=== PATIENT | female | born 1970 | race Caucasian/White ===

== ENCOUNTER 2019-02-21 11:44 | Emergency (ER) | payer MEDICAID ==
[~2019-02-21] VITALS: Ht 167.6 cm; Wt 62.6 kg
--- NOTE | 2019-02-21 11:58 | NUR ---
Dr. Roberts evaluating patient at bedside.
[2019-02-21 12:02] VITALS: BP 99/75
--- NOTE | 2019-02-21 12:03 | NUR ---
48F BIB [facility] C/O COLD SYMPTOMS AND DYSURIA X 1 WEEK. STATES PRODUCTIVE COUGH, CHILLS, BODY ACHES, CONGESTION, FEVER, SWEATING, URINARY FREQUENCY. PT HAD FEVER AT HOME, TOOK ALLEVE 1 HOUR AGO. LUNGS CTAB. MOIST COUGHING NOTED.
[2019-02-21] MEDS ORDERED: KETOROLAC 30 MG/ML VIAL IM ONE (12:05)
[2019-02-21 12:36] LABS: BASOPHILS % (AUTO) 0.3 % (0.0-2.0); EOSINOPHILS % (AUTO) 0.3 % (0.0-4.0); HEMATOCRIT 39.4 % (36-48); HEMOGLOBIN 13.3 g/dL (12.0-16.0); LYMPHOCYTES # (AUTO) 0.5 K/uL (2.5-16.5); LYMPHOCYTES % (AUTO) 5.1 % (20.5-51.1); MEAN CORPUSCULAR HEMOGLOBIN 32 pg (27-31); MEAN CORPUSCULAR HGB CONC 34 g/dL (33-37); MEAN CORPUSCULAR VOLUME 94.9 fL (80-94); MONOCYTES # (AUTO) 0.8 K/uL (0.8-1.0); NEUTROPHILS # (AUTO) 7.7 K/uL (1.8-7.7); NEUTROPHILS % (AUTO) 85.3 % (42.2-75.2); PLATELET COUNT (AUTO) 242 K/uL (140-450); RED BLOOD CELL COUNT(AUTO) 4.16 MIL/uL (4.20-5.40); RED CELL DISTRIBUTION WIDTH 12.9 % (11.6-13.7)
[2019-02-21 12:37] LABS: APPEARANCE,URINE CLOUDY (CLEAR); BILIRUBIN,URINE NEGATIVE (NEGATIVE); BLOOD, URINE 1+ (NEGATIVE); COLOR,URINE YELLOW (YELLOW); LEUKOCYTE ESTERASE ,URINE 3+ (NEGATIVE); NITRITE, URINE POSITIVE (NEGATIVE); UGLUCOSE NEGATIVE (NEGATIVE)
[2019-02-21 12:52] LABS: RBC,URINE 0-5 /HPF (0-5); WBC,URINE 80-100 /HPF (0-5)
[2019-02-21 12:53] LABS: POTASSIUM 3.9 mmol/L (3.5-5.1)
[2019-02-21 12:54] LABS: ANION GAP 11.3 (8-16); CARBON DIOXIDE 28.6 mmol/L (21-32)
[2019-02-21 13:07] LABS: TOTAL BILIRUBIN 0.6 mg/dL (0.0-1.0)
[2019-02-21] MEDS ORDERED: LEVOFLOXACIN 750 MG/D5W PREMIX 150 ML IV ONE (13:30)
[2019-02-21] MEDS ORDERED: NACL 0.9% 1,000 ML IV ONE (13:30)
[2019-02-21 15:20] VITALS: BP 113/68
--- NOTE | 2019-02-21 15:20 | NUR ---
Patient discharged with v/s stable. Written and verbal after care instructions given and explained. Patient alert, oriented and verbalized understanding of instructions. Ambulatory with steady gait. All questions addressed prior to discharge. ID band removed. Patient advised to follow up with PMD. Rx of IBUPROFEN, CIPRO given. Patient educated on indication of medication including possible reaction and side effects. Opportunity to ask questions provided and answered.
== END 2019-02-21 15:20 | disposition home or self-care (01) ==
LOC: MED 11:44
DX: N39.0 Urinary tract infection, site not specified (principal); Z88.1 Allergy status to other antibiotic agents
CPT/HCPCS: 36415; 80053; 81001; 81025; 83605; 85025; 87040; 87086; 87186; 87804; 96365; 96372; 99283; J1885; J1956; J7030